=== PATIENT | male | born 1965 | race Caucasian/White ===

== ENCOUNTER 2017-08-31 08:12 | Inpatient (IN) ==
[2017-08-31] MEDS ORDERED: LORazepam 2 MG/1 ML VIAL IV STA (08:20)
[2017-08-31] MEDS ORDERED: SODIUM CHLORIDE 0.9% 1,000 ML IV STA (08:20)
[2017-08-31] MEDS ORDERED: LORazepam 2 MG/1 ML VIAL ONE ×2 (08:24→09:11)
[2017-08-31 08:55] LABS: Albumin 3.1 G/DL (3.4-5.0); Calcium 8.5 MG/DL (8.5-10.1); Osmolality,Calculated 287.1 MOS/KG (273-304); Total Protein 6.9 G/DL (6.4-8.3)
[2017-08-31 08:57] LABS: Potassium 5.5 MMOL/L (3.5-5.1); Troponin I Only 0.114 NG/ML (0.00-0.045)
[2017-08-31 09:15] LABS: Basophils # 0.1 10*3/uL (0.0-0.2); Basophils % 0.5 % (0.0-0.8); Eosinophils # 0.1 10*3/uL (0.0-0.87); Eosinophils % 0.5 % (0.00-10.9); Hematocrit 44.1 VOL% (42.0-52.0); Hemoglobin 15.1 GM/DL (14.0-18.0); Immature Granulocytes % 0.7 %; Immature Granulocytes Absolute 0.14 #; Lymphocytes # 2.2 10*3/uL (1.4-4.0); Lymphocytes % 11.3 % (21.2-54.2); Mean Corpuscular HGB Conc 34.2 GM/DL (32-36); Mean Corpuscular Hemoglobin 29 PG (27-34); Mean Corpuscular Volume 84.2 FL (87-102); Mean Platelet Volume 9.7 FL (9.6-12.0); Monocytes % 5.4 % (1.7-12.7); Neutrophils # 15.5 10*3/uL (1.4-7.4); Neutrophils % 81.6 % (38.7-73.9); Platelet Count 177 T/CUMM (130-400); Red Blood Count 5.24 MC/CUMM (3.8-5.5); Red Cell Distribution Width 12.4 % (9.3-17.3)
[2017-08-31 09:26] LABS: INR 1.1; PT Patient Result 11.2 SECS; Partial Thromboplastin Time 23.4 SECS (0-40)
[2017-08-31] MEDS ORDERED: HEPARIN DRIP 500 ML IV SCH ×2 (09:30→10:00)
[2017-08-31] MEDS ORDERED: PROPOFOL 1,000 MG/100 ML BOTTLE IV ONE (09:37)
[2017-08-31 09:39] LABS: Band Neutrophils 3 % (0-10); Lymphocytes 14 % (20-55); Platelet Estimate Normal; Segmented Neutrophils 78 % (50-85); Total Cells Counted 100
[2017-08-31] MEDS ORDERED: ROCURONIUM 100 MG/10 ML VIAL IV STA (09:48)
[2017-08-31] MEDS ORDERED: ETOMIDATE 20 MG/10 ML VIAL IV STA (09:48)
[2017-08-31] MEDS ORDERED: HEPARIN 5,000 UNIT/1 ML VIAL IV STA (09:49)
[2017-08-31] MEDS ORDERED: HEPARIN 5,000 UNIT/1 ML VIAL ONE (09:51)
[2017-08-31] MEDS ORDERED: HEPARIN/NACL 0.9% 2 UNITS/ML 1,000 ML IV ONE (10:17)
[2017-08-31] MEDS ORDERED: LIDOCAINE 2% 20 ML VIAL ONE (10:17)
[2017-08-31] MEDS ORDERED: DILTIAZEM 100 MG VIAL.ADD IV ONE (10:35)
[2017-08-31] MEDS: DILTIAZEM INJ 100 MG in SODIUM CHLORIDE 0.9% 100 ML IV SCH ×2 (10:53→14:58)
[2017-08-31] MEDS ORDERED: ALTEPLASE 6 MG in SODIUM CHLORIDE 0.9% 120 ML IV SCH ×2 (10:55→11:05)
[2017-08-31] MEDS ORDERED: SODIUM CHLORIDE 0.9% 1,000 ML IV SCH ×5 (10:55→16:30)
[2017-08-31] MEDS ORDERED: DILTIAZEM 50 MG/10 ML VIAL IV ONE (10:58)
[2017-08-31] MEDS ORDERED: METOPROLOL TARTRATE 5 MG/5 ML VIAL IV ONE (10:58)
[2017-08-31] MEDS ORDERED: hydrALAZINE 20 MG/1 ML VIAL ONE (10:58)
[2017-08-31] MEDS ORDERED: ALBUTEROL 2.5 MG/3 ML NEB RESP TX PRN (10:59)
[2017-08-31] MEDS ORDERED: GLUCAGON 1 MG VIAL IM PRN (11:04)
[2017-08-31] MEDS ORDERED: DEXTROSE 50% 25 GM/50 ML VIAL IV PRN (11:04)
[2017-08-31] MEDS ORDERED: HEPARIN DRIP 50,000 UNITS/1,000 ML PREMIX IV ONE (11:17)
[2017-08-31] MEDS ORDERED: METOPROLOL TARTRATE 5 MG/5 ML VIAL IV PRN (11:18)
[2017-08-31] MEDS ORDERED: hydrALAZINE 20 MG/1 ML VIAL IV PRN (11:19)
[2017-08-31] MEDS ORDERED: HEPARIN DRIP 25,000 UNITS/500 ML PREMIX IV SCH ×2 (11:30)
[2017-08-31] MEDS ORDERED: INSULIN LISPRO 100 UNIT/ML SUBCUT SCH ×2 (11:30→18:00)
[2017-08-31 12:34] LABS: ABG Base Excess -11.2 MMOL/L (-2.5-2.5); ABG HCO3 15.9 MMOL/L (20-26); ABG Oxygen Saturation 97.7 % (95-100); ABG PCO2 58.6 MM HG (35-48); ABG TCO2 17.5 MMOL/L (23-27)
[2017-08-31 12:35] LABS: Allen Test Positive; Pt O2 Delivery Device Ventilator
[2017-08-31 12:38] LABS: ABG PH 7.135 (7.35-7.45)
[2017-08-31] MEDS ORDERED: ETOMIDATE 20 MG/10 ML VIAL IV ONE (12:49)
[2017-08-31] MEDS ORDERED: ROCURONIUM 100 MG/10 ML VIAL IV ONE (12:50)
[2017-08-31 13:09] LABS: Basophils # 0.1 10*3/uL (0.0-0.2); Basophils % 0.4 % (0.0-0.8); Eosinophils % 0.1 % (0.00-10.9); Hematocrit 47.8 VOL% (42.0-52.0); Hemoglobin 15.6 GM/DL (14.0-18.0); Immature Granulocytes % 1.4 %; Immature Granulocytes Absolute 0.27 #; Lymphocytes # 1.5 10*3/uL (1.4-4.0); Lymphocytes % 7.9 % (21.2-54.2); Mean Corpuscular HGB Conc 32.6 GM/DL (32-36); Mean Corpuscular Hemoglobin 28 PG (27-34); Mean Corpuscular Volume 86.8 FL (87-102); Monocytes # 1.5 10*3/uL (0.11-0.8); Monocytes % 7.6 % (1.7-12.7); Neutrophils % 82.6 % (38.7-73.9); Platelet Count 249 T/CUMM (130-400); Red Blood Count 5.51 MC/CUMM (3.8-5.5); Red Cell Distribution Width 12.4 % (9.3-17.3); White Blood Count 19.3 T/CUMM (4-12)
[2017-08-31 13:26] LABS: Partial Thromboplastin Time 52.8 SECS (0-40)
[2017-08-31 13:37] LABS: ABG HCO3 16.1 MMOL/L (20-26); ABG Oxygen Saturation 99.2 % (95-100); ABG PCO2 48.9 MM HG (35-48); Allen Test Positive; Pt O2 Delivery Device Ventilator
[2017-08-31] MEDS: PROPOFOL 1,000 MG/100 ML BOTTLE IV SCH ×3 (14:00→23:34)
[2017-08-31 14:04] LABS: Albumin 3.5 G/DL (3.4-5.0); Calcium 8.1 MG/DL (8.5-10.1); Osmolality,Calculated 294.1 MOS/KG (273-304); Total Protein 6.7 G/DL (6.4-8.3)
[2017-08-31 14:08] LABS: Potassium 6.5 MMOL/L (3.5-5.1)
[2017-08-31] MEDS ORDERED: LORazepam 2 MG/1 ML VIAL IV ONE (14:13)
[2017-08-31] MEDS ORDERED: SODIUM BICARBONATE 50 MEQ/50 ML SYRINGE IV ONE ×4 (14:24→16:59)
[2017-08-31] MEDS ORDERED: INSULIN REGULAR 100 UNIT/ML IV ONE ×3 (14:31→22:01)
[2017-08-31 14:35] LABS: ABG Base Excess -12.1 MMOL/L (-2.5-2.5); ABG HCO3 15.3 MMOL/L (20-26); ABG Oxygen Saturation 99.6 % (95-100); ABG PCO2 44.1 MM HG (35-48); ABG TCO2 14.6 MMOL/L (23-27); Allen Test Positive; Pt O2 Delivery Device Ventilator
[2017-08-31 14:37] LABS: ABG PH 7.184 (7.35-7.45)
[2017-08-31] MEDS: INSULIN LISPRO 100 UNIT/ML SUBCUT SCH ×2 (14:55→18:48)
[2017-08-31] MEDS: NOREPINEPHRINE 8 MG in SODIUM CHLORIDE 0.9% 242 ML IV SCH ×2 (15:15→23:12)
[2017-08-31] MEDS ORDERED: SODIUM CHLORIDE 0.9% 500 ML IV ONE (15:18)
[2017-08-31] MEDS ORDERED: NOREPINEPHRINE 4 MG/4 ML VIAL IV ONE (15:20)
[2017-08-31 15:48] LABS: Lactic Acid 6.6 MMOL/L (0.4-2.0)
[2017-08-31] MEDS: SODIUM BICARB INJ 100 MEQ in DEXTROSE 5% 1,000 ML IV SCH (16:10)
[2017-08-31 16:56] LABS: ABG Base Excess -13.9 MMOL/L (-2.5-2.5); ABG HCO3 14.1 MMOL/L (20-26); ABG Oxygen Saturation 99.6 % (95-100); ABG PCO2 46.8 MM HG (35-48); ABG TCO2 14.2 MMOL/L (23-27); Allen Test Positive; Pt O2 Delivery Device Ventilator
[2017-08-31 16:58] LABS: ABG PH 7.138 (7.35-7.45)
[2017-08-31 16:58] LABS: Basophils # 0.1 10*3/uL (0.0-0.2); Basophils % 0.3 % (0.0-0.8); Eosinophils % 0.1 % (0.00-10.9); Hematocrit 46.2 VOL% (42.0-52.0); Hemoglobin 14.9 GM/DL (14.0-18.0); Immature Granulocytes Absolute 0.33 #; Lymphocytes # 1.5 10*3/uL (1.4-4.0); Lymphocytes % 9.2 % (21.2-54.2); Mean Corpuscular HGB Conc 32.3 GM/DL (32-36); Mean Corpuscular Hemoglobin 29 PG (27-34); Mean Corpuscular Volume 89.2 FL (87-102); Mean Platelet Volume 10.1 FL (9.6-12.0); Monocytes # 1.8 10*3/uL (0.11-0.8); Monocytes % 10.7 % (1.7-12.7); Neutrophils # 12.8 10*3/uL (1.4-7.4); Neutrophils % 77.7 % (38.7-73.9); Platelet Count 220 T/CUMM (130-400); Red Blood Count 5.18 MC/CUMM (3.8-5.5); Red Cell Distribution Width 12.5 % (9.3-17.3); White Blood Count 16.4 T/CUMM (4-12)
[2017-08-31 17:16] LABS: Partial Thromboplastin Time 69.7 SECS (0-40)
[2017-08-31 17:22] LABS: INR 1.1
[2017-08-31] MEDS: cefTRIAXone 1,000 MG in SYRINGE 1 EACH IV SCH (18:30)
[2017-08-31 20:47] LABS: ABG Base Excess -3.3 MMOL/L (-2.5-2.5); ABG HCO3 21.8 MMOL/L (20-26); ABG Oxygen Saturation 99.9 % (95-100); ABG PCO2 41.9 MM HG (35-48); ABG PH 7.339 (7.35-7.45); ABG TCO2 19.2 MMOL/L (23-27); Allen Test Positive; Pt O2 Delivery Device Ventilator
[2017-08-31] MEDS ORDERED: INSULIN LISPRO 100 UNIT/ML SUBCUT ONE (21:30)
[2017-08-31 21:51] LABS: Calcium 7.3 MG/DL (8.5-10.1); Osmolality,Calculated 300.5 MOS/KG (273-304)
[2017-08-31 21:52] LABS: Potassium 6.5 MMOL/L (3.5-5.1)
[2017-08-31] MEDS ORDERED: CALCIUM GLUCONATE 1,000 MG in SODIUM CHLORIDE 0.9% 100 ML IV ONE (22:30)
[2017-09-01] MEDS ORDERED: INSULIN LISPRO 100 UNIT/ML SUBCUT SCH
[2017-09-01] MEDS: SODIUM BICARB INJ 100 MEQ in DEXTROSE 5% 1,000 ML IV SCH ×2 (01:06→12:20)
[2017-09-01] MEDS: PROPOFOL 1,000 MG/100 ML BOTTLE IV SCH ×5 (03:10→19:30)
[2017-09-01 03:54] LABS: ABG Base Excess 1.3 MMOL/L (-2.5-2.5); ABG HCO3 25.6 MMOL/L (20-26); ABG PCO2 39.1 MM HG (35-48); ABG PH 7.424 (7.35-7.45); ABG TCO2 21.6 MMOL/L (23-27); Pt O2 Delivery Device Ventilator
[2017-09-01] MEDS: INSULIN LISPRO 100 UNIT/ML SUBCUT SCH ×3 (03:55→08:37)
[2017-09-01 05:47] LABS: Basophils # 0.1 10*3/uL (0.0-0.2); Basophils % 0.4 % (0.0-0.8); Hematocrit 41.9 VOL% (42.0-52.0); Hemoglobin 14.4 GM/DL (14.0-18.0); Immature Granulocytes % 0.8 %; Immature Granulocytes Absolute 0.09 #; Lymphocytes % 17.6 % (21.2-54.2); Mean Corpuscular HGB Conc 34.4 GM/DL (32-36); Mean Corpuscular Hemoglobin 28 PG (27-34); Mean Platelet Volume 10.5 FL (9.6-12.0); Monocytes # 0.5 10*3/uL (0.11-0.8); Monocytes % 4.7 % (1.7-12.7); Neutrophils # 8.9 10*3/uL (1.4-7.4); Neutrophils % 76.5 % (38.7-73.9); Platelet Count 162 T/CUMM (130-400); Red Blood Count 5.11 MC/CUMM (3.8-5.5); Red Cell Distribution Width 12.6 % (9.3-17.3); White Blood Count 11.6 T/CUMM (4-12)
[2017-09-01 05:56] LABS: INR 1.3; PT Patient Result 13.1 SECS
[2017-09-01] MEDS: cefTRIAXone 1,000 MG in SYRINGE 1 EACH IV SCH ×2 (06:38→17:26)
[2017-09-01 06:57] LABS: Calcium 7.6 MG/DL (8.5-10.1); Osmolality,Calculated 296.3 MOS/KG (273-304); Potassium 4.3 MMOL/L (3.5-5.1)
[2017-09-01] MEDS ORDERED: SODIUM CHLORIDE 0.9% 1,000 ML IV ONE (08:26)
[2017-09-01] MEDS ORDERED: ALBUMIN 25% 25 GM in PREMIX 1 EACH IV ONE (08:26)
[2017-09-01] MEDS: NOREPINEPHRINE 8 MG in SODIUM CHLORIDE 0.9% 242 ML IV SCH (08:36)
[2017-09-01] MEDS ORDERED: LISINOPRIL 5 MG TABLET PO SCH (09:00)
[2017-09-01] MEDS ORDERED: HEPARIN DRIP 25,000 UNITS/500 ML PREMIX IV SCH (09:00)
[2017-09-01] MEDS ORDERED: PANTOPRAZOLE 40 MG TABLET PO SCH (09:00)
[2017-09-01] MEDS ORDERED: APIXABAN 5 MG TABLET PO SCH ×2 (09:00→09:02)
[2017-09-01] MEDS ORDERED: HEPARIN 5,000 UNIT/1 ML VIAL IV ONE (10:29)
[2017-09-01 10:45] LABS: Amorphous Crystals,Urine Many /HPF (Few); Apearance,Urine CLOUDY (Clear); Bilirubin,Urine Negative (Negative); Blood, Urine Large mg/dL (Negative); Glucose,Urine (UA) >=500 mg/dL (Negative); Granular Casts,Urine 15 /LPF (0-1); Ketones,Urine Negative (Negative); Nitrite,Urine Negative (Negative); Protein,Urine 100 MG/DL; RBC,Urine 2 /HPF (0-4); Urine Color Yellow (Yellow); Urine Specific Gravity 1.031 (1.001-1.035); Urine Urobilinogen < 2.0 EU/DL (0.2-1.0); WBC,Urine 8 /HPF (0-6)
[2017-09-01 11:11] LABS: Barbiturates Screen,Urine Negative (Negative); Benzodiazepines Screen,Urine Negative (Negative); Cannabinoid Screen,Urine Negative (Negative); Opiate Screen,Urine Positive (Negative); Phencyclidine Screen,Urine Negative (Negative)
[2017-09-01 11:39] LABS: Partial Thromboplastin Time 55.6 SECS (0-40)
[2017-09-01] MEDS: SIMVASTATIN 20 MG TABLET PO SCH (11:53)
[2017-09-01] MEDS: CITALOPRAM 20 MG TABLET PO SCH (11:53)
[2017-09-01] MEDS: ASPIRIN EC 81 MG TABLET PO SCH (11:53)
[2017-09-01] MEDS: APIXABAN 5 MG TABLET PO SCH ×2 (11:53→21:58)
[2017-09-01] MEDS: INSULIN REGULAR 100 UNIT/ML SUBCUT SCH ×2 (12:35→17:26)
[2017-09-01] MEDS: LORazepam 2 MG/1 ML VIAL IV PRN (12:48)
[2017-09-01] MEDS: SODIUM CHLORIDE 0.9% 1,000 ML IV SCH (17:05)
[2017-09-01 18:35] LABS: Partial Thromboplastin Time 29.6 SECS (0-40)
[2017-09-01] MEDS ORDERED: NOREPINEPHRINE 8 MG in SODIUM CHLORIDE 0.9% 242 ML IV SCH (23:30)
[2017-09-02] MEDS: INSULIN REGULAR 100 UNIT/ML SUBCUT SCH ×4 (00:19→18:24)
[2017-09-02] MEDS: SODIUM BICARB INJ 100 MEQ in DEXTROSE 5% 1,000 ML IV SCH (00:20)
[2017-09-02] MEDS: PROPOFOL 1,000 MG/100 ML BOTTLE IV SCH ×6 (00:23→22:00)
[2017-09-02] MEDS: SODIUM CHLORIDE 0.9% 1,000 ML IV SCH ×3 (03:03→22:15)
[2017-09-02 03:30] LABS: ABG Base Excess 4.4 MMOL/L (-2.5-2.5); ABG HCO3 28.3 MMOL/L (20-26); ABG Oxygen Saturation 97.8 % (95-100); ABG PH 7.453 (7.35-7.45); ABG PO2 94.8 MM HG (80-95); ABG TCO2 25.2 MMOL/L (23-27)
[2017-09-02] MEDS: LORazepam 2 MG/1 ML VIAL IV PRN (03:55)
[2017-09-02 05:36] LABS: Basophils % 0.4 % (0.0-0.8); Eosinophils % 0.2 % (0.00-10.9); Hematocrit 35.9 VOL% (42.0-52.0); Hemoglobin 12.4 GM/DL (14.0-18.0); Immature Granulocytes % 0.8 %; Immature Granulocytes Absolute 0.09 #; Lymphocytes # 1.1 10*3/uL (1.4-4.0); Lymphocytes % 9.9 % (21.2-54.2); Mean Corpuscular HGB Conc 34.5 GM/DL (32-36); Mean Corpuscular Hemoglobin 29 PG (27-34); Mean Corpuscular Volume 83.5 FL (87-102); Mean Platelet Volume 10.9 FL (9.6-12.0); Monocytes # 0.5 10*3/uL (0.11-0.8); NRBC # 0.02 10*3/uL; Neutrophils % 83.7 % (38.7-73.9); Platelet Count 114 T/CUMM (130-400); Red Cell Distribution Width 12.5 % (9.3-17.3); White Blood Count 10.8 T/CUMM (4-12)
[2017-09-02 05:42] LABS: Partial Thromboplastin Time 28.5 SECS (0-40)
[2017-09-02] MEDS: cefTRIAXone 1,000 MG in SYRINGE 1 EACH IV SCH ×2 (05:57→18:24)
[2017-09-02 06:23] LABS: Albumin 2.9 G/DL (3.4-5.0); Bilirubin,Total 1.5 MG/DL (0.2-1.0); Calcium 7.6 MG/DL (8.5-10.1); Osmolality,Calculated 290.3 MOS/KG (273-304); Potassium 3.7 MMOL/L (3.5-5.1); Total Protein 5.2 G/DL (6.4-8.3)
[2017-09-02 06:30] LABS: Prealbumin 12.4 MG/DL (20-40)
[2017-09-02] MEDS: SIMVASTATIN 20 MG TABLET PO SCH (08:50)
[2017-09-02] MEDS: CITALOPRAM 20 MG TABLET PO SCH (08:50)
[2017-09-02] MEDS: ASPIRIN EC 81 MG TABLET PO SCH (08:50)
[2017-09-02] MEDS: APIXABAN 5 MG TABLET PO SCH ×2 (08:53→21:39)
[2017-09-02] MEDS ORDERED: FUROSEMIDE 20 MG/2 ML VIAL IV ONE (09:58)
[2017-09-02 14:52] LABS: ABG Base Excess 5.4 MMOL/L (-2.5-2.5); ABG HCO3 29.3 MMOL/L (20-26); ABG Oxygen Saturation 96.7 % (95-100); ABG PCO2 42.6 MM HG (35-48); ABG PH 7.455 (7.35-7.45); ABG PO2 83.3 MM HG (80-95); ABG TCO2 26.4 MMOL/L (23-27); Allen Test Positive; Pt O2 Delivery Device CPAP
[2017-09-03] MEDS: INSULIN REGULAR 100 UNIT/ML SUBCUT SCH ×4 (00:20→17:32)
[2017-09-03] MEDS: PROPOFOL 1,000 MG/100 ML BOTTLE IV SCH ×4 (02:33→19:11)
[2017-09-03 03:49] LABS: ABG Base Excess 3.3 MMOL/L (-2.5-2.5); ABG HCO3 27.3 MMOL/L (20-26); ABG Oxygen Saturation 98.3 % (95-100); ABG PCO2 44.8 MM HG (35-48); ABG PH 7.411 (7.35-7.45); ABG TCO2 25.1 MMOL/L (23-27)
[2017-09-03] MEDS: LORazepam 2 MG/1 ML VIAL IV PRN (04:09)
[2017-09-03 04:42] LABS: Basophils # 0.1 10*3/uL (0.0-0.2); Basophils % 0.7 % (0.0-0.8); Eosinophils # 0.1 10*3/uL (0.0-0.87); Eosinophils % 1.5 % (0.00-10.9); Hematocrit 35.1 VOL% (42.0-52.0); Immature Granulocytes % 0.6 %; Immature Granulocytes Absolute 0.05 #; Lymphocytes # 0.9 10*3/uL (1.4-4.0); Lymphocytes % 9.9 % (21.2-54.2); Mean Corpuscular HGB Conc 34.2 GM/DL (32-36); Mean Corpuscular Hemoglobin 28 PG (27-34); Mean Corpuscular Volume 82.8 FL (87-102); Monocytes # 0.5 10*3/uL (0.11-0.8); Monocytes % 5.9 % (1.7-12.7); NRBC # 0.03 10*3/uL; Neutrophils # 7.1 10*3/uL (1.4-7.4); Neutrophils % 81.4 % (38.7-73.9); Platelet Count 129 T/CUMM (130-400); Red Blood Count 4.24 MC/CUMM (3.8-5.5); Red Cell Distribution Width 12.5 % (9.3-17.3); White Blood Count 8.7 T/CUMM (4-12)
[2017-09-03 05:14] LABS: Albumin 2.8 G/DL (3.4-5.0); Bilirubin,Total 1.3 MG/DL (0.2-1.0); Calcium 7.7 MG/DL (8.5-10.1); Osmolality,Calculated 289.1 MOS/KG (273-304); Potassium 3.7 MMOL/L (3.5-5.1); Total Protein 5.1 G/DL (6.4-8.3)
[2017-09-03] MEDS: cefTRIAXone 1,000 MG in SYRINGE 1 EACH IV SCH ×2 (06:17→17:32)
[2017-09-03] MEDS: CITALOPRAM 20 MG TABLET PO SCH (09:42)
[2017-09-03] MEDS: ASPIRIN EC 81 MG TABLET PO SCH (09:43)
[2017-09-03] MEDS: SODIUM CHLORIDE 0.9% 1,000 ML IV SCH ×2 (09:43→20:30)
[2017-09-03] MEDS: APIXABAN 5 MG TABLET PO SCH ×2 (09:43→20:35)
[2017-09-03] MEDS ORDERED: FUROSEMIDE 20 MG/2 ML VIAL IV ONE (11:00)
[2017-09-03] MEDS: LEVOFLOXACIN INJ 750 MG in PREMIX 1 EACH IV SCH (11:59)
[2017-09-04] MEDS: INSULIN REGULAR 100 UNIT/ML SUBCUT SCH ×4 (02:00→17:40)
[2017-09-04] MEDS: PROPOFOL 1,000 MG/100 ML BOTTLE IV SCH ×3 (02:01→20:53)
[2017-09-04] MEDS: LORazepam 2 MG/1 ML VIAL IV PRN (02:02)
[2017-09-04 04:46] LABS: ABG Base Excess 4.5 MMOL/L (-2.5-2.5); ABG HCO3 28.5 MMOL/L (20-26); ABG Oxygen Saturation 99.4 % (95-100); ABG PCO2 44.6 MM HG (35-48); ABG PH 7.429 (7.35-7.45); ABG TCO2 25.7 MMOL/L (23-27); Pt O2 Delivery Device Ventilator
[2017-09-04 05:38] LABS: Basophils % 0.5 % (0.0-0.8); Eosinophils # 0.2 10*3/uL (0.0-0.87); Eosinophils % 2.7 % (0.00-10.9); Hematocrit 32.2 VOL% (42.0-52.0); Immature Granulocytes % 0.8 %; Immature Granulocytes Absolute 0.06 #; Lymphocytes % 12.1 % (21.2-54.2); Mean Corpuscular HGB Conc 34.2 GM/DL (32-36); Mean Corpuscular Hemoglobin 29 PG (27-34); Mean Corpuscular Volume 83.6 FL (87-102); Mean Platelet Volume 11.1 FL (9.6-12.0); Monocytes # 0.7 10*3/uL (0.11-0.8); NRBC # 0.02 10*3/uL; Neutrophils # 5.9 10*3/uL (1.4-7.4); Neutrophils % 74.9 % (38.7-73.9); Platelet Count 157 T/CUMM (130-400); Red Blood Count 3.85 MC/CUMM (3.8-5.5); Red Cell Distribution Width 12.4 % (9.3-17.3); White Blood Count 7.9 T/CUMM (4-12)
[2017-09-04 06:54] LABS: Calcium 7.5 MG/DL (8.5-10.1); Potassium 3.7 MMOL/L (3.5-5.1)
[2017-09-04] MEDS: cefTRIAXone 1,000 MG in SYRINGE 1 EACH IV SCH ×2 (07:07→17:40)
[2017-09-04 08:48] LABS: Albumin 2.6 G/DL (3.4-5.0); Bilirubin,Direct 0.46 MG/DL (0.0-0.20); Bilirubin,Indirect 0.5 MG/DL (0.0-1.0)
[2017-09-04] MEDS: APIXABAN 5 MG TABLET PO SCH ×2 (09:27→21:00)
[2017-09-04] MEDS: CITALOPRAM 20 MG TABLET PO SCH (09:27)
[2017-09-04] MEDS: ASPIRIN EC 81 MG TABLET PO SCH (09:27)
[2017-09-04] MEDS: LEVOFLOXACIN INJ 750 MG in PREMIX 1 EACH IV SCH (09:33)
[2017-09-04] MEDS: SODIUM CHLORIDE 0.9% 1,000 ML IV SCH ×3 (09:33→19:45)
[2017-09-04] MEDS: MORPHINE 2 MG/1 ML SYRINGE IV PRN ×3 (16:40→23:51)
[2017-09-04] MEDS ORDERED: MIDAZOLAM 100 MG in SODIUM CHLORIDE 0.9% 80 ML IV SCH (20:30)
[2017-09-04] MEDS ORDERED: SUCCINYLCHOLINE 200 MG/10 ML VIAL ONE (21:40)
[2017-09-05] MEDS: LORazepam 2 MG/1 ML VIAL IV PRN ×2 (00:10→16:15)
[2017-09-05] MEDS: INSULIN REGULAR 100 UNIT/ML SUBCUT SCH ×4 (00:15→17:23)
[2017-09-05] MEDS ORDERED: RACEPINEPHRINE 0.5 ML NEB RESP TX PRN (01:00)
[2017-09-05] MEDS ORDERED: ETOMIDATE 20 MG/10 ML VIAL IV ONE ×2 (01:08→01:25)
[2017-09-05] MEDS ORDERED: VECURONIUM 10 MG VIAL IV ONE ×2 (01:18→01:24)
[2017-09-05] MEDS: PROPOFOL 1,000 MG/100 ML BOTTLE IV SCH ×2 (01:22→05:14)
[2017-09-05] MEDS ORDERED: fentaNYL 100 MCG/2 ML VIAL ONE (01:22)
[2017-09-05] MEDS ORDERED: PROPOFOL 1,000 MG/100 ML BOTTLE IV ONE (01:22)
[2017-09-05] MEDS ORDERED: fentaNYL 100 MCG/2 ML VIAL IV ONE (01:23)
[2017-09-05] MEDS ORDERED: SUCCINYLCHOLINE 200 MG/10 ML VIAL IV ONE (01:24)
[2017-09-05] MEDS ORDERED: RACEPINEPHRINE 0.5 ML NEB RESP TX ONE (01:37)
[2017-09-05] MEDS ORDERED: FUROSEMIDE 40 MG/4 ML VIAL IV ONE (01:41)
[2017-09-05] MEDS ORDERED: diphenhydrAMINE 50 MG/1 ML VIAL IV ONE (01:41)
[2017-09-05] MEDS: fentaNYL INJ 1,250 MCG in SODIUM CHLORIDE 0.9% 225 ML IV SCH ×2 (01:48→18:16)
[2017-09-05] MEDS ORDERED: methylPREDNISolone SOD SUC 125 MG/2 ML VIAL IV ONE (01:49)
[2017-09-05] MEDS ORDERED: VANCOMYCIN INJ 1,750 MG in SODIUM CHLORIDE 0.9% 500 ML IV SCH (02:00)
[2017-09-05] MEDS: SODIUM CHLORIDE 0.9% 1,000 ML IV SCH ×2 (02:20→05:13)
[2017-09-05 02:33] LABS: Basophils % 0.4 % (0.0-0.8); Eosinophils # 0.2 10*3/uL (0.0-0.87); Eosinophils % 1.6 % (0.00-10.9); Hematocrit 36.3 VOL% (42.0-52.0); Hemoglobin 11.8 GM/DL (14.0-18.0); Immature Granulocytes % 2.1 %; Immature Granulocytes Absolute 0.23 #; Lymphocytes # 0.8 10*3/uL (1.4-4.0); Lymphocytes % 7.3 % (21.2-54.2); Mean Corpuscular HGB Conc 32.5 GM/DL (32-36); Mean Corpuscular Hemoglobin 28 PG (27-34); Mean Corpuscular Volume 86.2 FL (87-102); Mean Platelet Volume 10.6 FL (9.6-12.0); Monocytes # 0.9 10*3/uL (0.11-0.8); Monocytes % 8.1 % (1.7-12.7); Neutrophils # 8.7 10*3/uL (1.4-7.4); Neutrophils % 80.5 % (38.7-73.9); Platelet Count 187 T/CUMM (130-400); Red Blood Count 4.21 MC/CUMM (3.8-5.5); Red Cell Distribution Width 12.5 % (9.3-17.3); White Blood Count 10.8 T/CUMM (4-12)
[2017-09-05 02:33] LABS: Allen Test Positive; Pt O2 Delivery Device Ventilator
[2017-09-05 02:34] LABS: ABG Base Excess -0.6 MMOL/L (-2.5-2.5); ABG HCO3 27.6 MMOL/L (20-26); ABG Oxygen Saturation 90.7 % (95-100); ABG PCO2 62.6 MM HG (35-48); ABG PH 7.262 (7.35-7.45); ABG PO2 70.1 MM HG (80-95); ABG TCO2 29.5 MMOL/L (23-27)
[2017-09-05 03:02] LABS: Band Neutrophils 15 % (0-10); Lymphocytes 4 % (20-55); Segmented Neutrophils 75 % (50-85); Total Cells Counted 100
[2017-09-05 03:03] LABS: Alanine Aminotransferase 1969 U/L (16-61); Albumin 2.7 G/DL (3.4-5.0); Alkaline Phosphatase 110 U/L (45-117); Aspartate Amino Transferase 135 U/L (0-37); Blood Urea Nitrogen 21 MG/DL (7-18); Calcium 7.5 MG/DL (8.5-10.1); Glucose 192 MG/DL (74-106); Osmolality,Calculated 295.7 MOS/KG (273-304); Sodium 145 MMOL/L (136-145); Total Protein 5.2 G/DL (6.4-8.3); Troponin I Only < 0.015 NG/ML (0.00-0.045)
[2017-09-05] MEDS: ALBUTEROL 2.5 MG/3 ML NEB RESP TX SCH ×5 (03:06→21:09)
[2017-09-05 04:03] LABS: Allen Test Positive; Pt O2 Delivery Device Ventilator
[2017-09-05 04:05] LABS: ABG Base Excess 0.9 MMOL/L (-2.5-2.5); ABG HCO3 25.2 MMOL/L (20-26); ABG Oxygen Saturation 98.8 % (95-100); ABG PCO2 40.3 MM HG (35-48); ABG PH 7.409 (7.35-7.45); ABG TCO2 22.7 MMOL/L (23-27)
[2017-09-05] MEDS ORDERED: CALCIUM GLUCONATE 1,000 MG in SODIUM CHLORIDE 0.9% 100 ML IV ONE (04:22)
[2017-09-05] MEDS: PIPERACILLIN/TAZOBACTAM 3,375 MG in SODIUM CHLORIDE 0.9% 100 ML IV SCH ×3 (05:57→20:22)
[2017-09-05 07:45] LABS: Basophils % 0.3 % (0.0-0.8); Eosinophils % 0.1 % (0.00-10.9); Hematocrit 34.8 VOL% (42.0-52.0); Hemoglobin 11.6 GM/DL (14.0-18.0); Immature Granulocytes % 1.6 %; Immature Granulocytes Absolute 0.15 #; Lymphocytes # 0.5 10*3/uL (1.4-4.0); Lymphocytes % 5.5 % (21.2-54.2); Mean Corpuscular HGB Conc 33.3 GM/DL (32-36); Mean Corpuscular Hemoglobin 28 PG (27-34); Mean Corpuscular Volume 84.9 FL (87-102); Mean Platelet Volume 10.6 FL (9.6-12.0); Monocytes # 0.3 10*3/uL (0.11-0.8); Neutrophils # 8.3 10*3/uL (1.4-7.4); Neutrophils % 89.5 % (38.7-73.9); Platelet Count 199 T/CUMM (130-400); Red Cell Distribution Width 12.3 % (9.3-17.3); White Blood Count 9.2 T/CUMM (4-12)
[2017-09-05 08:03] LABS: Calcium 6.9 MG/DL (8.5-10.1); Osmolality,Calculated 295.8 MOS/KG (273-304); Potassium 4.1 MMOL/L (3.5-5.1)
[2017-09-05 08:07] LABS: Prealbumin 8.3 MG/DL (20-40)
[2017-09-05 08:08] LABS: % Iron Saturation 10.7 % (18-50); Ferritin 1205.6 ng/ml (26-388)
[2017-09-05 08:31] LABS: Hypochromasia 1+
[2017-09-05 08:42] LABS: Hepatitis A Ab IgM Quant 0.09 Index; Hepatitis A Ab IgM Result Negative (Negative); Hepatitis B Core IgM Quant 0.19 Index; Hepatitis B Core IgM Result Negative (Negative); Hepatitis B Surface Ag Quant < 0.10 Index; Hepatitis B Surface Ag Result Negative (Negative); Hepatitis C Virus Ab Quant 0.11 Index; Hepatitis C Virus Ab Result Negative (Negative)
[2017-09-05] MEDS ORDERED: metOLazone 5 MG TABLET PO ONE (09:00)
[2017-09-05] MEDS: APIXABAN 5 MG TABLET PO SCH ×2 (09:04→20:22)
[2017-09-05] MEDS: ASPIRIN EC 81 MG TABLET PO SCH (09:05)
[2017-09-05] MEDS: methylPREDNISolone SOD SUC 40 MG/1 ML VIAL IV SCH ×2 (09:05→17:24)
[2017-09-05] MEDS: LEVOFLOXACIN INJ 750 MG in PREMIX 1 EACH IV SCH (09:06)
[2017-09-05] MEDS: CITALOPRAM 20 MG TABLET PO SCH (09:07)
[2017-09-05 09:37] LABS: Allen Test Positive; Pt O2 Delivery Device Ventilator
[2017-09-05 09:40] LABS: ABG Base Excess 0.6 MMOL/L (-2.5-2.5); ABG HCO3 23.3 MMOL/L (20-26); ABG Oxygen Saturation 98.7 % (95-100); ABG PCO2 31.5 MM HG (35-48); ABG PH 7.487 (7.35-7.45); ABG PO2 172.5 MM HG (80-95); ABG TCO2 24.3 MMOL/L (23-27)
[2017-09-05] MEDS: ACYCLOVIR INJ 500 MG in SODIUM CHLORIDE 0.9% 100 ML IV SCH ×2 (13:22→18:12)
[2017-09-06] MEDS: INSULIN REGULAR 100 UNIT/ML SUBCUT SCH ×4 (00:52→17:27)
[2017-09-06] MEDS: ALBUTEROL 2.5 MG/3 ML NEB RESP TX SCH ×6 (01:00→21:36)
[2017-09-06 04:17] LABS: ABG Base Excess 4.3 MMOL/L (-2.5-2.5); ABG HCO3 28.1 MMOL/L (20-26); ABG PCO2 38.8 MM HG (35-48); ABG PH 7.477 (7.35-7.45); ABG PO2 97.5 MM HG (80-95); ABG TCO2 29.2 MMOL/L (23-27); Allen Test Positive; Pt O2 Delivery Device Ventilator
[2017-09-06] MEDS: ACYCLOVIR INJ 500 MG in SODIUM CHLORIDE 0.9% 100 ML IV SCH ×3 (04:24→18:15)
[2017-09-06] MEDS: PIPERACILLIN/TAZOBACTAM 3,375 MG in SODIUM CHLORIDE 0.9% 100 ML IV SCH ×3 (04:24→22:57)
[2017-09-06] MEDS: methylPREDNISolone SOD SUC 40 MG/1 ML VIAL IV SCH ×3 (04:25→20:20)
[2017-09-06 05:13] LABS: Basophils % 0.1 % (0.0-0.8); Hematocrit 34.7 VOL% (42.0-52.0); Hemoglobin 11.5 GM/DL (14.0-18.0); Immature Granulocytes Absolute 0.13 #; Lymphocytes # 0.6 10*3/uL (1.4-4.0); Lymphocytes % 4.7 % (21.2-54.2); Mean Corpuscular HGB Conc 33.1 GM/DL (32-36); Mean Corpuscular Hemoglobin 28 PG (27-34); Mean Corpuscular Volume 84.2 FL (87-102); Mean Platelet Volume 11.1 FL (9.6-12.0); Monocytes # 0.7 10*3/uL (0.11-0.8); Monocytes % 5.2 % (1.7-12.7); Neutrophils # 11.9 10*3/uL (1.4-7.4); Platelet Count 246 T/CUMM (130-400); Red Blood Count 4.12 MC/CUMM (3.8-5.5); Red Cell Distribution Width 12.2 % (9.3-17.3); White Blood Count 13.4 T/CUMM (4-12)
[2017-09-06 05:59] LABS: Albumin 2.7 G/DL (3.4-5.0); Bilirubin,Total 0.8 MG/DL (0.2-1.0); Calcium 8.2 MG/DL (8.5-10.1); Potassium 3.4 MMOL/L (3.5-5.1); Total Protein 5.4 G/DL (6.4-8.3)
[2017-09-06] MEDS: PROPOFOL 1,000 MG/100 ML BOTTLE IV SCH (07:01)
[2017-09-06] MEDS: fentaNYL INJ 1,250 MCG in SODIUM CHLORIDE 0.9% 225 ML IV SCH ×2 (08:21→19:33)
[2017-09-06] MEDS ORDERED: POTASSIUM CHLORIDE 20 MEQ TABLET PO ONE (08:33)
[2017-09-06 08:56] LABS: Lymphocytes 6 % (20-55); Segmented Neutrophils 90 % (50-85); Total Cells Counted 100
[2017-09-06 08:57] LABS: Hypochromasia 1+; Microcytosis 1+; Platelet Estimate Normal
[2017-09-06] MEDS ORDERED: metOLazone 5 MG TABLET PO ONE (09:00)
[2017-09-06] MEDS ORDERED: FUROSEMIDE 20 MG/2 ML VIAL IV SCH (09:00)
[2017-09-06] MEDS: CITALOPRAM 20 MG TABLET PO SCH (09:05)
[2017-09-06] MEDS: APIXABAN 5 MG TABLET PO SCH ×2 (09:05→20:20)
[2017-09-06] MEDS: ASPIRIN EC 81 MG TABLET PO SCH (09:05)
[2017-09-06] MEDS: glyBURIDE 2.5 MG TABLET PO SCH (09:05)
[2017-09-06] MEDS: INSULIN GLARGINE 100 UNIT/ML SUBCUT SCH (09:06)
[2017-09-06] MEDS: LEVOFLOXACIN INJ 750 MG in PREMIX 1 EACH IV SCH (09:06)
[2017-09-06] MEDS: LORazepam 2 MG/1 ML VIAL IV PRN (09:58)
[2017-09-07] MEDS: ALBUTEROL 2.5 MG/3 ML NEB RESP TX SCH ×7 (01:22→23:37)
[2017-09-07] MEDS: INSULIN REGULAR 100 UNIT/ML SUBCUT SCH ×4 (01:25→18:29)
[2017-09-07] MEDS: fentaNYL INJ 1,250 MCG in SODIUM CHLORIDE 0.9% 225 ML IV SCH ×3 (02:41→21:18)
[2017-09-07] MEDS: methylPREDNISolone SOD SUC 40 MG/1 ML VIAL IV SCH ×3 (03:43→22:30)
[2017-09-07] MEDS: ACYCLOVIR INJ 500 MG in SODIUM CHLORIDE 0.9% 100 ML IV SCH ×3 (03:47→18:29)
[2017-09-07 03:54] LABS: Basophils % 0.1 % (0.0-0.8); Hematocrit 35.5 VOL% (42.0-52.0); Immature Granulocytes % 0.9 %; Immature Granulocytes Absolute 0.16 #; Lymphocytes # 0.6 10*3/uL (1.4-4.0); Lymphocytes % 3.5 % (21.2-54.2); Mean Corpuscular HGB Conc 33.8 GM/DL (32-36); Mean Corpuscular Hemoglobin 28 PG (27-34); Mean Corpuscular Volume 83.5 FL (87-102); Mean Platelet Volume 10.7 FL (9.6-12.0); Monocytes # 0.6 10*3/uL (0.11-0.8); Monocytes % 3.5 % (1.7-12.7); Neutrophils # 16.4 10*3/uL (1.4-7.4); Platelet Count 307 T/CUMM (130-400); Red Blood Count 4.25 MC/CUMM (3.8-5.5); Red Cell Distribution Width 12.4 % (9.3-17.3); White Blood Count 17.8 T/CUMM (4-12)
[2017-09-07 03:56] LABS: ABG Base Excess 5.2 MMOL/L (-2.5-2.5); ABG Oxygen Saturation 94.6 % (95-100); ABG PCO2 45.3 MM HG (35-48); ABG PH 7.432 (7.35-7.45); ABG PO2 72.7 MM HG (80-95); ABG TCO2 26.7 MMOL/L (23-27)
[2017-09-07] MEDS: PROPOFOL 1,000 MG/100 ML BOTTLE IV SCH ×2 (03:57→17:15)
[2017-09-07 04:26] LABS: Albumin 2.9 G/DL (3.4-5.0); Bilirubin,Total 0.7 MG/DL (0.2-1.0); Calcium 8.4 MG/DL (8.5-10.1); Osmolality,Calculated 301.1 MOS/KG (273-304); Potassium 3.4 MMOL/L (3.5-5.1); Total Protein 5.7 G/DL (6.4-8.3)
[2017-09-07 05:23] LABS: Hypochromasia 1+; Lymphocytes 6 % (20-55); Microcytosis 1+; Platelet Estimate Normal; Segmented Neutrophils 90 % (50-85); Total Cells Counted 100
[2017-09-07] MEDS: PIPERACILLIN/TAZOBACTAM 3,375 MG in SODIUM CHLORIDE 0.9% 100 ML IV SCH ×2 (06:44→15:42)
[2017-09-07] MEDS: LORazepam 2 MG/1 ML VIAL IV PRN ×2 (10:45→15:42)
[2017-09-07 10:59] LABS: ABG Base Excess 4.9 MMOL/L (-2.5-2.5); ABG HCO3 29.3 MMOL/L (20-26); ABG Oxygen Saturation 97.1 % (95-100); ABG PCO2 42.5 MM HG (35-48); ABG PH 7.457 (7.35-7.45); ABG PO2 100.4 MM HG (80-95); ABG TCO2 30.6 MMOL/L (23-27)
[2017-09-07] MEDS: CITALOPRAM 20 MG TABLET PO SCH (11:15)
[2017-09-07] MEDS: POTASSIUM CHLORIDE 20 MEQ TABLET PO SCH (11:16)
[2017-09-07] MEDS: APIXABAN 5 MG TABLET PO SCH ×2 (11:16→22:30)
[2017-09-07] MEDS: ASPIRIN EC 81 MG TABLET PO SCH (11:16)
[2017-09-07] MEDS: LEVOFLOXACIN INJ 750 MG in PREMIX 1 EACH IV SCH (11:17)
[2017-09-07] MEDS: glyBURIDE 2.5 MG TABLET PO SCH (11:24)
[2017-09-07] MEDS: INSULIN GLARGINE 100 UNIT/ML SUBCUT SCH (11:26)
[2017-09-07] MEDS: fentaNYL INJ 2,500 MCG in SODIUM CHLORIDE 0.9% 450 ML IV SCH (21:18)
[2017-09-08] MEDS: INSULIN REGULAR 100 UNIT/ML SUBCUT SCH ×4 (00:44→18:07)
[2017-09-08] MEDS: PIPERACILLIN/TAZOBACTAM 3,375 MG in SODIUM CHLORIDE 0.9% 100 ML IV SCH ×4 (00:46→21:20)
[2017-09-08] MEDS: fentaNYL INJ 1,250 MCG in SODIUM CHLORIDE 0.9% 225 ML IV SCH (01:59)
[2017-09-08] MEDS: ALBUTEROL 2.5 MG/3 ML NEB RESP TX SCH ×5 (02:57→19:27)
[2017-09-08] MEDS: ACYCLOVIR INJ 500 MG in SODIUM CHLORIDE 0.9% 100 ML IV SCH ×3 (03:48→18:07)
[2017-09-08 04:08] LABS: Basophils % 0.1 % (0.0-0.8); Hematocrit 37.8 VOL% (42.0-52.0); Hemoglobin 12.5 GM/DL (14.0-18.0); Immature Granulocytes % 2.8 %; Immature Granulocytes Absolute 0.41 #; Lymphocytes # 0.5 10*3/uL (1.4-4.0); Lymphocytes % 3.7 % (21.2-54.2); Mean Corpuscular HGB Conc 33.1 GM/DL (32-36); Mean Corpuscular Hemoglobin 28 PG (27-34); Mean Corpuscular Volume 83.6 FL (87-102); Mean Platelet Volume 10.8 FL (9.6-12.0); Monocytes # 0.6 10*3/uL (0.11-0.8); Monocytes % 4.1 % (1.7-12.7); Neutrophils # 13.1 10*3/uL (1.4-7.4); Neutrophils % 89.3 % (38.7-73.9); Platelet Count 337 T/CUMM (130-400); Red Blood Count 4.52 MC/CUMM (3.8-5.5); Red Cell Distribution Width 12.3 % (9.3-17.3); White Blood Count 14.6 T/CUMM (4-12)
[2017-09-08 04:29] LABS: Lymphocytes 1 % (20-55); Segmented Neutrophils 93 % (50-85); Total Cells Counted 100
[2017-09-08 04:30] LABS: Hypochromasia 1+; Microcytosis 1+; Platelet Estimate Normal
[2017-09-08 04:32] LABS: ABG Base Excess 6.1 MMOL/L (-2.5-2.5); ABG HCO3 29.8 MMOL/L (20-26); ABG Oxygen Saturation 96.5 % (95-100); ABG PCO2 39.6 MM HG (35-48); ABG PH 7.494 (7.35-7.45); ABG PO2 86.4 MM HG (80-95); Allen Test Positive; Pt O2 Delivery Device Ventilator
[2017-09-08 04:35] LABS: Calcium 8.7 MG/DL (8.5-10.1); Osmolality,Calculated 293.5 MOS/KG (273-304); Potassium 3.6 MMOL/L (3.5-5.1)
[2017-09-08] MEDS: PROPOFOL 1,000 MG/100 ML BOTTLE IV SCH ×2 (05:16→16:09)
[2017-09-08] MEDS: methylPREDNISolone SOD SUC 40 MG/1 ML VIAL IV SCH ×2 (08:24→21:15)
[2017-09-08] MEDS: INSULIN GLARGINE 100 UNIT/ML SUBCUT SCH (08:24)
[2017-09-08] MEDS: POTASSIUM CHLORIDE 20 MEQ TABLET PO SCH (08:25)
[2017-09-08] MEDS: APIXABAN 5 MG TABLET PO SCH ×2 (08:25→21:20)
[2017-09-08] MEDS: glyBURIDE 2.5 MG TABLET PO SCH (08:25)
[2017-09-08] MEDS: ASPIRIN EC 81 MG TABLET PO SCH (08:25)
[2017-09-08] MEDS: CITALOPRAM 20 MG TABLET PO SCH (08:25)
[2017-09-08] MEDS: AZITHROMYCIN INJ 500 MG in SODIUM CHLORIDE 0.9% 250 ML IV SCH (09:13)
[2017-09-08] MEDS: fentaNYL INJ 2,500 MCG in SODIUM CHLORIDE 0.9% 450 ML IV SCH ×2 (11:32→22:45)
[2017-09-09] MEDS: ALBUTEROL 2.5 MG/3 ML NEB RESP TX SCH ×6 (00:05→20:35)
[2017-09-09] MEDS: INSULIN REGULAR 100 UNIT/ML SUBCUT SCH ×4 (00:28→18:00)
[2017-09-09] MEDS: fentaNYL INJ 1,250 MCG in SODIUM CHLORIDE 0.9% 225 ML IV SCH (01:59)
[2017-09-09] MEDS: ACYCLOVIR INJ 500 MG in SODIUM CHLORIDE 0.9% 100 ML IV SCH ×3 (03:07→18:01)
[2017-09-09 04:35] LABS: ABG Base Excess 5.6 MMOL/L (-2.5-2.5); ABG Oxygen Saturation 97.1 % (95-100); ABG PCO2 43.1 MM HG (35-48); ABG PH 7.461 (7.35-7.45); ABG PO2 97.2 MM HG (80-95); ABG TCO2 31.4 MMOL/L (23-27)
[2017-09-09 04:36] LABS: Allen Test Positive; Pt O2 Delivery Device Ventilator
[2017-09-09] MEDS: PROPOFOL 1,000 MG/100 ML BOTTLE IV SCH ×3 (06:05→18:34)
[2017-09-09] MEDS: PIPERACILLIN/TAZOBACTAM 3,375 MG in SODIUM CHLORIDE 0.9% 100 ML IV SCH ×3 (06:41→21:35)
[2017-09-09] MEDS ORDERED: FUROSEMIDE 40 MG/4 ML VIAL IV ONE (08:37)
[2017-09-09] MEDS: INSULIN GLARGINE 100 UNIT/ML SUBCUT SCH (08:53)
[2017-09-09] MEDS: POTASSIUM CHLORIDE 20 MEQ TABLET PO SCH (08:53)
[2017-09-09] MEDS: ASPIRIN EC 81 MG TABLET PO SCH (08:53)
[2017-09-09] MEDS: glyBURIDE 2.5 MG TABLET PO SCH (08:53)
[2017-09-09] MEDS: APIXABAN 5 MG TABLET PO SCH ×2 (08:53→21:34)
[2017-09-09] MEDS: CITALOPRAM 20 MG TABLET PO SCH (08:54)
[2017-09-09] MEDS: methylPREDNISolone SOD SUC 40 MG/1 ML VIAL IV SCH ×2 (09:01→21:32)
[2017-09-09] MEDS: AZITHROMYCIN INJ 500 MG in SODIUM CHLORIDE 0.9% 250 ML IV SCH (09:02)
[2017-09-09] MEDS ORDERED: POTASSIUM CHLORIDE 20 MEQ/15 ML UDCUP PER TUBE PRN (10:18)
[2017-09-09] MEDS: fentaNYL INJ 2,500 MCG in SODIUM CHLORIDE 0.9% 450 ML IV SCH ×2 (11:05→21:40)
[2017-09-09] MEDS: metOLazone 2.5 MG TABLET PO SCH (13:30)
[2017-09-09] MEDS: LORazepam 2 MG/1 ML VIAL IV PRN ×2 (15:25→18:32)
[2017-09-09 18:38] LABS: Calcium 8.6 MG/DL (8.5-10.1); Osmolality,Calculated 286.8 MOS/KG (273-304); Potassium 4.2 MMOL/L (3.5-5.1)
[2017-09-10] MEDS: INSULIN REGULAR 100 UNIT/ML SUBCUT SCH ×4 (00:30→18:44)
[2017-09-10] MEDS: ALBUTEROL 2.5 MG/3 ML NEB RESP TX SCH ×6 (01:03→19:50)
[2017-09-10] MEDS: PROPOFOL 1,000 MG/100 ML BOTTLE IV SCH ×2 (03:31→17:30)
[2017-09-10] MEDS: ACYCLOVIR INJ 500 MG in SODIUM CHLORIDE 0.9% 100 ML IV SCH ×3 (03:32→18:41)
[2017-09-10 04:06] LABS: ABG Base Excess 7.2 MMOL/L (-2.5-2.5); ABG HCO3 32.2 MMOL/L (20-26); ABG Oxygen Saturation 98.1 % (95-100); ABG PCO2 47.1 MM HG (35-48); ABG PH 7.453 (7.35-7.45); ABG PO2 122.1 MM HG (80-95); ABG TCO2 33.7 MMOL/L (23-27); Allen Test Positive; Pt O2 Delivery Device Ventilator
[2017-09-10] MEDS: LORazepam 2 MG/1 ML VIAL IV PRN (04:10)
[2017-09-10 04:44] LABS: Basophils % 0.2 % (0.0-0.8); Hematocrit 38.4 VOL% (42.0-52.0); Hemoglobin 13.4 GM/DL (14.0-18.0); Immature Granulocytes % 2.8 %; Lymphocytes # 1.1 10*3/uL (1.4-4.0); Lymphocytes % 7.4 % (21.2-54.2); Mean Corpuscular HGB Conc 34.9 GM/DL (32-36); Mean Corpuscular Hemoglobin 29 PG (27-34); Mean Corpuscular Volume 81.5 FL (87-102); Mean Platelet Volume 10.5 FL (9.6-12.0); Monocytes # 0.6 10*3/uL (0.11-0.8); Monocytes % 4.3 % (1.7-12.7); Neutrophils # 12.3 10*3/uL (1.4-7.4); Neutrophils % 85.3 % (38.7-73.9); Platelet Count 424 T/CUMM (130-400); Red Blood Count 4.71 MC/CUMM (3.8-5.5); Red Cell Distribution Width 12.2 % (9.3-17.3); White Blood Count 14.4 T/CUMM (4-12)
[2017-09-10 05:10] LABS: Calcium 9.1 MG/DL (8.5-10.1); Osmolality,Calculated 280.4 MOS/KG (273-304); Potassium 4.5 MMOL/L (3.5-5.1)
[2017-09-10 05:13] LABS: Albumin 3.1 G/DL (3.4-5.0); Bilirubin,Direct 0.39 MG/DL (0.0-0.20); Bilirubin,Indirect 0.5 MG/DL (0.0-1.0); Bilirubin,Total 0.9 MG/DL (0.2-1.0); Total Protein 6.1 G/DL (6.4-8.3)
[2017-09-10] MEDS: PIPERACILLIN/TAZOBACTAM 3,375 MG in SODIUM CHLORIDE 0.9% 100 ML IV SCH ×3 (06:39→22:56)
[2017-09-10] MEDS: ASPIRIN EC 81 MG TABLET PO SCH (09:22)
[2017-09-10] MEDS: POTASSIUM CHLORIDE 20 MEQ TABLET PO SCH (09:22)
[2017-09-10] MEDS: glyBURIDE 2.5 MG TABLET PO SCH (09:23)
[2017-09-10] MEDS: metOLazone 2.5 MG TABLET PO SCH (09:23)
[2017-09-10] MEDS: CITALOPRAM 20 MG TABLET PO SCH (09:23)
[2017-09-10] MEDS: INSULIN GLARGINE 100 UNIT/ML SUBCUT SCH (09:28)
[2017-09-10] MEDS: APIXABAN 5 MG TABLET PO SCH ×2 (09:28→20:37)
[2017-09-10] MEDS: AZITHROMYCIN INJ 500 MG in SODIUM CHLORIDE 0.9% 250 ML IV SCH (09:49)
[2017-09-10] MEDS: fentaNYL INJ 2,500 MCG in SODIUM CHLORIDE 0.9% 450 ML IV SCH ×2 (11:05→20:53)
[2017-09-10] MEDS: methylPREDNISolone SOD SUC 40 MG/1 ML VIAL IV SCH ×2 (11:09→20:37)
[2017-09-11] MEDS: ALBUTEROL 2.5 MG/3 ML NEB RESP TX SCH ×6 (00:10→19:59)
[2017-09-11] MEDS: INSULIN REGULAR 100 UNIT/ML SUBCUT SCH ×4 (01:03→18:20)
[2017-09-11] MEDS: PROPOFOL 1,000 MG/100 ML BOTTLE IV SCH ×5 (03:23→21:45)
[2017-09-11 03:36] LABS: ABG Base Excess 7.8 MMOL/L (-2.5-2.5); ABG HCO3 31.8 MMOL/L (20-26); ABG Oxygen Saturation 98.3 % (95-100); ABG PCO2 42.2 MM HG (35-48); ABG PH 7.495 (7.35-7.45); ABG PO2 124.5 MM HG (80-95); ABG TCO2 33.1 MMOL/L (23-27); Allen Test Positive; Pt O2 Delivery Device Ventilator
[2017-09-11] MEDS: fentaNYL INJ 2,500 MCG in SODIUM CHLORIDE 0.9% 450 ML IV SCH ×3 (04:53→21:11)
[2017-09-11] MEDS: ACYCLOVIR INJ 500 MG in SODIUM CHLORIDE 0.9% 100 ML IV SCH ×3 (05:16→18:20)
[2017-09-11 06:10] LABS: Prealbumin 31.3 MG/DL (20-40)
[2017-09-11] MEDS: PIPERACILLIN/TAZOBACTAM 3,375 MG in SODIUM CHLORIDE 0.9% 100 ML IV SCH ×2 (06:40→21:43)
[2017-09-11] MEDS ORDERED: PROPOFOL 200 MG/20 ML VIAL IV ONE (10:37)
[2017-09-11] MEDS ORDERED: fentaNYL 100 MCG/2 ML VIAL ONE (10:37)
[2017-09-11] MEDS ORDERED: MIDAZOLAM 10 MG/2 ML VIAL ONE (10:37)
[2017-09-11] MEDS ORDERED: SEVOFLURANE 1 UNIT/15 MINUTE INH ONE (10:37)
[2017-09-11] MEDS ORDERED: VECURONIUM 10 MG VIAL IV ONE (10:37)
[2017-09-11] MEDS ORDERED: GLYCOPYRROLATE 0.4 MG/2 ML VIAL ONE (10:38)
[2017-09-11] MEDS: glyBURIDE 2.5 MG TABLET PO SCH (11:15)
[2017-09-11] MEDS: methylPREDNISolone SOD SUC 40 MG/1 ML VIAL IV SCH ×2 (11:15→20:26)
[2017-09-11] MEDS: POTASSIUM CHLORIDE 20 MEQ TABLET PO SCH (11:16)
[2017-09-11] MEDS: ASPIRIN EC 81 MG TABLET PO SCH (11:16)
[2017-09-11] MEDS: APIXABAN 5 MG TABLET PO SCH ×2 (11:16→20:27)
[2017-09-11] MEDS: metOLazone 2.5 MG TABLET PO SCH (11:16)
[2017-09-11] MEDS: CITALOPRAM 20 MG TABLET PO SCH (11:16)
[2017-09-11] MEDS: AZITHROMYCIN INJ 500 MG in SODIUM CHLORIDE 0.9% 250 ML IV SCH (11:17)
[2017-09-11] MEDS: INSULIN GLARGINE 100 UNIT/ML SUBCUT SCH (11:36)
[2017-09-12] MEDS: ALBUTEROL 2.5 MG/3 ML NEB RESP TX SCH ×7 (00:17→23:28)
[2017-09-12] MEDS: INSULIN REGULAR 100 UNIT/ML SUBCUT SCH ×4 (00:52→17:19)
[2017-09-12] MEDS: ACYCLOVIR INJ 500 MG in SODIUM CHLORIDE 0.9% 100 ML IV SCH ×3 (02:14→18:11)
[2017-09-12] MEDS: PROPOFOL 1,000 MG/100 ML BOTTLE IV SCH ×4 (02:14→20:20)
[2017-09-12] MEDS: fentaNYL INJ 2,500 MCG in SODIUM CHLORIDE 0.9% 450 ML IV SCH ×5 (02:53→23:10)
[2017-09-12 03:47] LABS: ABG Base Excess 5.7 MMOL/L (-2.5-2.5); ABG HCO3 29.6 MMOL/L (20-26); ABG Oxygen Saturation 98.1 % (95-100); ABG PCO2 45.3 MM HG (35-48); ABG PH 7.439 (7.35-7.45); ABG TCO2 27.2 MMOL/L (23-27); Allen Test Positive; Pt O2 Delivery Device Ventilator
[2017-09-12 06:11] LABS: Basophils % 0.1 % (0.0-0.8); Hematocrit 34.1 VOL% (42.0-52.0); Hemoglobin 11.6 GM/DL (14.0-18.0); Immature Granulocytes Absolute 0.14 #; Lymphocytes # 0.6 10*3/uL (1.4-4.0); Lymphocytes % 4.1 % (21.2-54.2); Mean Corpuscular Hemoglobin 28 PG (27-34); Mean Corpuscular Volume 83.2 FL (87-102); Monocytes # 0.6 10*3/uL (0.11-0.8); Monocytes % 4.3 % (1.7-12.7); Neutrophils # 12.5 10*3/uL (1.4-7.4); Neutrophils % 90.5 % (38.7-73.9); Platelet Count 334 T/CUMM (130-400); Red Cell Distribution Width 12.5 % (9.3-17.3); White Blood Count 13.8 T/CUMM (4-12)
[2017-09-12 06:28] LABS: Giant Platelets Few; Hypochromasia 1+; Lymphocytes 3 % (20-55); Microcytosis Slight; Platelet Estimate Adequate; Segmented Neutrophils 93 % (50-85); Total Cells Counted 100
[2017-09-12] MEDS: PIPERACILLIN/TAZOBACTAM 3,375 MG in SODIUM CHLORIDE 0.9% 100 ML IV SCH ×3 (06:29→21:29)
[2017-09-12 06:34] LABS: Calcium 8.2 MG/DL (8.5-10.1); Osmolality,Calculated 285.5 MOS/KG (273-304); Potassium 4.6 MMOL/L (3.5-5.1)
[2017-09-12] MEDS: CITALOPRAM 20 MG TABLET PO SCH (08:14)
[2017-09-12] MEDS: metOLazone 2.5 MG TABLET PO SCH (08:15)
[2017-09-12] MEDS: ASPIRIN EC 81 MG TABLET PO SCH (08:15)
[2017-09-12] MEDS: APIXABAN 5 MG TABLET PO SCH ×2 (08:15→21:28)
[2017-09-12] MEDS: methylPREDNISolone SOD SUC 40 MG/1 ML VIAL IV SCH ×2 (08:15→21:29)
[2017-09-12] MEDS: INSULIN GLARGINE 100 UNIT/ML SUBCUT SCH (08:15)
[2017-09-12] MEDS: POTASSIUM CHLORIDE 20 MEQ TABLET PO SCH (08:15)
[2017-09-12] MEDS: glyBURIDE 2.5 MG TABLET PO SCH (08:15)
[2017-09-12] MEDS: AZITHROMYCIN INJ 500 MG in SODIUM CHLORIDE 0.9% 250 ML IV SCH (08:38)
[2017-09-12] MEDS: POLYETHYLENE GLYCOL POWDER 17 GM PACK PO SCH (21:28)
[2017-09-13] MEDS: INSULIN REGULAR 100 UNIT/ML SUBCUT SCH ×4 (00:46→18:29)
[2017-09-13] MEDS: PROPOFOL 1,000 MG/100 ML BOTTLE IV SCH ×4 (01:10→23:28)
[2017-09-13] MEDS: ACYCLOVIR INJ 500 MG in SODIUM CHLORIDE 0.9% 100 ML IV SCH ×3 (03:30→18:29)
[2017-09-13] MEDS: ALBUTEROL 2.5 MG/3 ML NEB RESP TX SCH ×6 (03:34→23:22)
[2017-09-13 04:18] LABS: Allen Test Positive; Pt O2 Delivery Device Ventilator
[2017-09-13 04:23] LABS: ABG Base Excess 5.9 MMOL/L (-2.5-2.5); ABG HCO3 29.7 MMOL/L (20-26); ABG Oxygen Saturation 98.8 % (95-100); ABG PH 7.488 (7.35-7.45); ABG PO2 157.4 MM HG (80-95); ABG TCO2 30.9 MMOL/L (23-27)
[2017-09-13] MEDS: fentaNYL INJ 2,500 MCG in SODIUM CHLORIDE 0.9% 450 ML IV SCH ×4 (04:29→21:33)
[2017-09-13] MEDS: PIPERACILLIN/TAZOBACTAM 3,375 MG in SODIUM CHLORIDE 0.9% 100 ML IV SCH ×3 (05:35→21:00)
[2017-09-13] MEDS: methylPREDNISolone SOD SUC 40 MG/1 ML VIAL IV SCH ×2 (08:01→21:02)
[2017-09-13] MEDS: metOLazone 2.5 MG TABLET PO SCH (08:01)
[2017-09-13] MEDS: POTASSIUM CHLORIDE 20 MEQ TABLET PO SCH (08:01)
[2017-09-13] MEDS: ASPIRIN EC 81 MG TABLET PO SCH (08:01)
[2017-09-13] MEDS: CITALOPRAM 20 MG TABLET PO SCH (08:01)
[2017-09-13] MEDS: INSULIN GLARGINE 100 UNIT/ML SUBCUT SCH (08:01)
[2017-09-13] MEDS: glyBURIDE 2.5 MG TABLET PO SCH (08:01)
[2017-09-13] MEDS: APIXABAN 5 MG TABLET PO SCH ×2 (08:01→21:01)
[2017-09-13] MEDS: POLYETHYLENE GLYCOL POWDER 17 GM PACK PO SCH ×2 (08:02→21:01)
[2017-09-13] MEDS: AZITHROMYCIN INJ 500 MG in SODIUM CHLORIDE 0.9% 250 ML IV SCH (09:11)
[2017-09-14] MEDS: INSULIN REGULAR 100 UNIT/ML SUBCUT SCH ×4 (00:14→18:08)
[2017-09-14] MEDS: fentaNYL INJ 2,500 MCG in SODIUM CHLORIDE 0.9% 450 ML IV SCH ×5 (02:28→22:25)
[2017-09-14] MEDS: ACYCLOVIR INJ 500 MG in SODIUM CHLORIDE 0.9% 100 ML IV SCH ×3 (02:30→18:08)
[2017-09-14] MEDS: PROPOFOL 1,000 MG/100 ML BOTTLE IV SCH ×2 (03:24→07:16)
[2017-09-14] MEDS: ALBUTEROL 2.5 MG/3 ML NEB RESP TX SCH ×6 (03:38→23:41)
[2017-09-14 03:59] LABS: ABG Base Excess 8.1 MMOL/L (-2.5-2.5); ABG HCO3 31.4 MMOL/L (20-26); ABG Oxygen Saturation 95.5 % (95-100); ABG PCO2 38.7 MM HG (35-48); ABG PH 7.527 (7.35-7.45); ABG PO2 74.7 MM HG (80-95); ABG TCO2 32.6 MMOL/L (23-27); Allen Test Positive; Pt O2 Delivery Device Ventilator
[2017-09-14] MEDS: PIPERACILLIN/TAZOBACTAM 3,375 MG in SODIUM CHLORIDE 0.9% 100 ML IV SCH ×3 (05:34→21:42)
[2017-09-14] MEDS: AZITHROMYCIN INJ 500 MG in SODIUM CHLORIDE 0.9% 250 ML IV SCH (08:53)
[2017-09-14] MEDS: POLYETHYLENE GLYCOL POWDER 17 GM PACK PO SCH ×2 (08:53→21:42)
[2017-09-14] MEDS: INSULIN GLARGINE 100 UNIT/ML SUBCUT SCH (08:53)
[2017-09-14] MEDS: methylPREDNISolone SOD SUC 40 MG/1 ML VIAL IV SCH ×2 (08:53→21:46)
[2017-09-14] MEDS: APIXABAN 5 MG TABLET PO SCH ×2 (08:54→21:41)
[2017-09-14] MEDS: CITALOPRAM 20 MG TABLET PO SCH (08:54)
[2017-09-14] MEDS: glyBURIDE 2.5 MG TABLET PO SCH (08:54)
[2017-09-14] MEDS: ASPIRIN EC 81 MG TABLET PO SCH (08:54)
[2017-09-14] MEDS: metOLazone 2.5 MG TABLET PO SCH (08:54)
[2017-09-14] MEDS: POTASSIUM CHLORIDE 20 MEQ TABLET PO SCH (08:54)
[2017-09-14] MEDS: ONDANSETRON 4 MG/2 ML VIAL IV PRN ×2 (14:51→20:30)
[2017-09-14] MEDS: LACTULOSE 20 GM/30 ML UDCUP PO SCH (21:41)
[2017-09-15] MEDS: INSULIN REGULAR 100 UNIT/ML SUBCUT SCH ×4 (00:19→18:34)
[2017-09-15] MEDS: PROPOFOL 1,000 MG/100 ML BOTTLE IV SCH ×2 (00:35→04:38)
[2017-09-15] MEDS: fentaNYL INJ 2,500 MCG in SODIUM CHLORIDE 0.9% 450 ML IV SCH (03:11)
[2017-09-15] MEDS: ACYCLOVIR INJ 500 MG in SODIUM CHLORIDE 0.9% 100 ML IV SCH ×3 (03:21→18:31)
[2017-09-15] MEDS: ALBUTEROL 2.5 MG/3 ML NEB RESP TX SCH ×5 (03:45→19:32)
[2017-09-15 04:21] LABS: ABG Base Excess 0.4 MMOL/L (-2.5-2.5); ABG HCO3 24.7 MMOL/L (20-26); ABG Oxygen Saturation 96.4 % (95-100); ABG PH 7.358 (7.35-7.45); ABG TCO2 23.3 MMOL/L (23-27); Allen Test Positive; Pt O2 Delivery Device Ventilator
[2017-09-15 04:32] LABS: Basophils % 0.2 % (0.0-0.8); Hematocrit 35.5 VOL% (42.0-52.0); Hemoglobin 12.4 GM/DL (14.0-18.0); Immature Granulocytes % 2.9 %; Immature Granulocytes Absolute 0.45 #; Lymphocytes # 1.3 10*3/uL (1.4-4.0); Lymphocytes % 8.4 % (21.2-54.2); Mean Corpuscular HGB Conc 34.9 GM/DL (32-36); Mean Corpuscular Hemoglobin 29 PG (27-34); Mean Corpuscular Volume 82.8 FL (87-102); Mean Platelet Volume 10.7 FL (9.6-12.0); Monocytes # 0.5 10*3/uL (0.11-0.8); Monocytes % 3.2 % (1.7-12.7); Neutrophils # 13.3 10*3/uL (1.4-7.4); Neutrophils % 85.3 % (38.7-73.9); Platelet Count 385 T/CUMM (130-400); Red Blood Count 4.29 MC/CUMM (3.8-5.5); Red Cell Distribution Width 12.6 % (9.3-17.3); White Blood Count 15.6 T/CUMM (4-12)
[2017-09-15 05:05] LABS: Calcium 8.9 MG/DL (8.5-10.1); Potassium 4.4 MMOL/L (3.5-5.1)
[2017-09-15] MEDS: PIPERACILLIN/TAZOBACTAM 3,375 MG in SODIUM CHLORIDE 0.9% 100 ML IV SCH ×3 (05:53→23:29)
[2017-09-15] MEDS: methylPREDNISolone SOD SUC 40 MG/1 ML VIAL IV SCH ×2 (08:39→21:35)
[2017-09-15] MEDS: APIXABAN 5 MG TABLET PO SCH ×2 (08:42→21:31)
[2017-09-15] MEDS: metOLazone 2.5 MG TABLET PO SCH (08:43)
[2017-09-15] MEDS: CITALOPRAM 20 MG TABLET PO SCH (08:44)
[2017-09-15] MEDS: ASPIRIN EC 81 MG TABLET PO SCH (08:45)
[2017-09-15] MEDS: glyBURIDE 2.5 MG TABLET PO SCH (08:45)
[2017-09-15] MEDS: POTASSIUM CHLORIDE 20 MEQ TABLET PO SCH (08:45)
[2017-09-15] MEDS: INSULIN GLARGINE 100 UNIT/ML SUBCUT SCH (08:46)
[2017-09-15] MEDS: LACTULOSE 20 GM/30 ML UDCUP PO SCH ×3 (08:47→21:31)
[2017-09-15] MEDS: POLYETHYLENE GLYCOL POWDER 17 GM PACK PO SCH ×2 (08:50→21:31)
[2017-09-15] MEDS: AZITHROMYCIN INJ 500 MG in SODIUM CHLORIDE 0.9% 250 ML IV SCH (08:50)
[2017-09-15 11:10] LABS: ABG HCO3 26.2 MMOL/L (20-26); ABG Oxygen Saturation 97.8 % (95-100); ABG PCO2 44.2 MM HG (35-48); ABG PH 7.391 (7.35-7.45); ABG PO2 111.3 MM HG (80-95); ABG TCO2 27.6 MMOL/L (23-27)
[2017-09-15] MEDS: ONDANSETRON 4 MG/2 ML VIAL IV PRN (12:29)
[2017-09-15] MEDS: MORPHINE 2 MG/1 ML SYRINGE IV PRN (14:51)
[2017-09-15 15:28] LABS: ABG Base Excess -0.4 MMOL/L (-2.5-2.5); ABG HCO3 24.1 MMOL/L (20-26); ABG Oxygen Saturation 98.6 % (95-100); ABG PCO2 40.3 MM HG (35-48); ABG PH 7.391 (7.35-7.45); ABG TCO2 21.7 MMOL/L (23-27)
[2017-09-15] MEDS ORDERED: ALUM/MAG/SIMETH/LIDO VISC 1:1 30 ML BOTTLE PO ONE (20:04)
[2017-09-15] MEDS: MECLIZINE 25 MG TABLET PO PRN (20:23)
[2017-09-15] MEDS: PHENOL 1.4% THROAT SPRAY 177 ML BOTTLE PO PRN (21:00)
[2017-09-16] MEDS: ALBUTEROL 2.5 MG/3 ML NEB RESP TX SCH ×7 (00:05→23:44)
[2017-09-16] MEDS: ACYCLOVIR INJ 500 MG in SODIUM CHLORIDE 0.9% 100 ML IV SCH (03:17)
[2017-09-16] MEDS: PHENOL 1.4% THROAT SPRAY 177 ML BOTTLE PO PRN (03:17)
[2017-09-16 03:29] LABS: ABG Base Excess 1.5 MMOL/L (-2.5-2.5); ABG HCO3 25.4 MMOL/L (20-26); ABG PCO2 37.5 MM HG (35-48); ABG PH 7.448 (7.35-7.45); ABG PO2 74.9 MM HG (80-95); ABG TCO2 26.5 MMOL/L (23-27); Allen Test Positive
[2017-09-16] MEDS: INSULIN REGULAR 100 UNIT/ML SUBCUT SCH ×2 (06:12)
[2017-09-16] MEDS: PIPERACILLIN/TAZOBACTAM 3,375 MG in SODIUM CHLORIDE 0.9% 100 ML IV SCH ×3 (06:12→23:30)
[2017-09-16] MEDS: glyBURIDE 2.5 MG TABLET PO SCH (08:46)
[2017-09-16] MEDS: LACTULOSE 20 GM/30 ML UDCUP PO SCH (08:46)
[2017-09-16] MEDS: ASPIRIN EC 81 MG TABLET PO SCH (08:46)
[2017-09-16] MEDS: CITALOPRAM 20 MG TABLET PO SCH (08:46)
[2017-09-16] MEDS: metOLazone 2.5 MG TABLET PO SCH (08:46)
[2017-09-16] MEDS: APIXABAN 5 MG TABLET PO SCH ×2 (08:46→21:34)
[2017-09-16] MEDS: POTASSIUM CHLORIDE 20 MEQ TABLET PO SCH (08:46)
[2017-09-16] MEDS: INSULIN GLARGINE 100 UNIT/ML SUBCUT SCH (08:47)
[2017-09-16] MEDS: POLYETHYLENE GLYCOL POWDER 17 GM PACK PO SCH (08:47)
[2017-09-16] MEDS: methylPREDNISolone SOD SUC 40 MG/1 ML VIAL IV SCH (08:47)
[2017-09-16] MEDS: AZITHROMYCIN INJ 500 MG in SODIUM CHLORIDE 0.9% 250 ML IV SCH (08:57)
[2017-09-16] MEDS: MECLIZINE 25 MG TABLET PO PRN (09:37)
[2017-09-16] MEDS: MORPHINE 2 MG/1 ML SYRINGE IV PRN (09:38)
[2017-09-16] MEDS ORDERED: DEXTROSE 50% 25 GM/50 ML VIAL IV PRN (11:03)
[2017-09-16] MEDS ORDERED: GLUCAGON 1 MG VIAL IM PRN (11:03)
[2017-09-16] MEDS: INSULIN LISPRO 100 UNIT/ML SUBCUT SCH ×3 (11:48→21:34)
[2017-09-16] MEDS: MELATONIN 3 MG TABLET PO PRN (21:34)
[2017-09-17] MEDS: ALBUTEROL 2.5 MG/3 ML NEB RESP TX SCH ×6 (03:39→23:56)
[2017-09-17] MEDS: PIPERACILLIN/TAZOBACTAM 3,375 MG in SODIUM CHLORIDE 0.9% 100 ML IV SCH ×3 (07:00→23:31)
[2017-09-17] MEDS: INSULIN LISPRO 100 UNIT/ML SUBCUT SCH ×4 (08:20→20:24)
[2017-09-17] MEDS: predniSONE 20 MG TABLET PO SCH (09:08)
[2017-09-17] MEDS: CITALOPRAM 20 MG TABLET PO SCH (09:08)
[2017-09-17] MEDS: APIXABAN 5 MG TABLET PO SCH ×2 (09:08→20:22)
[2017-09-17] MEDS: glyBURIDE 2.5 MG TABLET PO SCH (09:08)
[2017-09-17] MEDS: POTASSIUM CHLORIDE 20 MEQ TABLET PO SCH (09:09)
[2017-09-17] MEDS: acetaZOLAMIDE 250 MG TABLET PO SCH (09:09)
[2017-09-17] MEDS: metOLazone 2.5 MG TABLET PO SCH (09:09)
[2017-09-17] MEDS: ASPIRIN EC 81 MG TABLET PO SCH (09:09)
[2017-09-17] MEDS: SIMVASTATIN 20 MG TABLET PO SCH (09:09)
[2017-09-17] MEDS: INSULIN GLARGINE 100 UNIT/ML SUBCUT SCH (09:10)
[2017-09-17] MEDS: AZITHROMYCIN INJ 500 MG in SODIUM CHLORIDE 0.9% 250 ML IV SCH (10:17)
[2017-09-17] MEDS: MELATONIN 3 MG TABLET PO PRN (21:52)
[2017-09-18] MEDS: ALBUTEROL 2.5 MG/3 ML NEB RESP TX SCH ×5 (04:08→19:26)
[2017-09-18 04:55] LABS: Basophils % 0.2 % (0.0-0.8); Eosinophils # 0.1 10*3/uL (0.0-0.87); Eosinophils % 0.4 % (0.00-10.9); Hematocrit 38.6 VOL% (42.0-52.0); Hemoglobin 13.4 GM/DL (14.0-18.0); Immature Granulocytes % 2.6 %; Immature Granulocytes Absolute 0.33 #; Lymphocytes # 1.9 10*3/uL (1.4-4.0); Lymphocytes % 14.9 % (21.2-54.2); Mean Corpuscular HGB Conc 34.7 GM/DL (32-36); Mean Corpuscular Hemoglobin 28 PG (27-34); Mean Corpuscular Volume 81.4 FL (87-102); Mean Platelet Volume 10.6 FL (9.6-12.0); Monocytes # 1.1 10*3/uL (0.11-0.8); Monocytes % 8.5 % (1.7-12.7); Neutrophils # 9.2 10*3/uL (1.4-7.4); Neutrophils % 73.4 % (38.7-73.9); Platelet Count 353 T/CUMM (130-400); Red Blood Count 4.74 MC/CUMM (3.8-5.5); Red Cell Distribution Width 13.2 % (9.3-17.3); White Blood Count 12.6 T/CUMM (4-12)
[2017-09-18 05:11] LABS: Calcium 8.6 MG/DL (8.5-10.1); Osmolality,Calculated 277.8 MOS/KG (273-304); Potassium 2.6 MMOL/L (3.5-5.1)
[2017-09-18] MEDS: INSULIN GLARGINE 100 UNIT/ML SUBCUT SCH (09:05)
[2017-09-18] MEDS: PIPERACILLIN/TAZOBACTAM 3,375 MG in SODIUM CHLORIDE 0.9% 100 ML IV SCH (09:05)
[2017-09-18] MEDS: predniSONE 20 MG TABLET PO SCH (09:06)
[2017-09-18] MEDS: metOLazone 2.5 MG TABLET PO SCH (09:06)
[2017-09-18] MEDS: glyBURIDE 2.5 MG TABLET PO SCH (09:06)
[2017-09-18] MEDS: SIMVASTATIN 20 MG TABLET PO SCH (09:06)
[2017-09-18] MEDS: ASPIRIN EC 81 MG TABLET PO SCH (09:06)
[2017-09-18] MEDS: POTASSIUM CHLORIDE 20 MEQ TABLET PO SCH ×2 (09:06→10:33)
[2017-09-18] MEDS: APIXABAN 5 MG TABLET PO SCH ×2 (09:06→20:28)
[2017-09-18] MEDS: acetaZOLAMIDE 250 MG TABLET PO SCH (09:07)
[2017-09-18] MEDS: CITALOPRAM 20 MG TABLET PO SCH (09:07)
[2017-09-18] MEDS: INSULIN LISPRO 100 UNIT/ML SUBCUT SCH ×4 (09:20→20:28)
[2017-09-18] MEDS: AZITHROMYCIN INJ 500 MG in SODIUM CHLORIDE 0.9% 250 ML IV SCH (10:39)
[2017-09-18] MEDS ORDERED: predniSONE 20 MG TABLET PO SCH (10:58)
[2017-09-18] MEDS: POTASSIUM CHLORIDE 20 MEQ TABLET PO PRN ×4 (12:44→18:54)
[2017-09-18 17:05] LABS: Apearance,Urine CLEAR (Clear); Bilirubin,Urine Negative (Negative); Blood, Urine Negative (Negative); Glucose,Urine (UA) >=500 mg/dL (Negative); Ketones,Urine 5 mg/dL (Negative); Mucus,Urine Occasional /LPF (Occasional); Nitrite,Urine Negative (Negative); Protein,Urine Negative; RBC,Urine 1 /HPF (0-4); Urine Color Yellow (Yellow); Urine Specific Gravity 1.018 (1.001-1.035); WBC,Urine 1 /HPF (0-6)
[2017-09-19] MEDS: ALBUTEROL 2.5 MG/3 ML NEB RESP TX SCH ×4 (00:20→11:00)
[2017-09-19] MEDS: POTASSIUM CHLORIDE 20 MEQ TABLET PO PRN ×3 (04:52→09:25)
[2017-09-19] MEDS: INSULIN LISPRO 100 UNIT/ML SUBCUT SCH ×2 (08:39→12:09)
[2017-09-19] MEDS: CITALOPRAM 20 MG TABLET PO SCH (09:25)
[2017-09-19] MEDS: APIXABAN 5 MG TABLET PO SCH (09:25)
[2017-09-19] MEDS: ASPIRIN EC 81 MG TABLET PO SCH (09:26)
[2017-09-19] MEDS: POTASSIUM CHLORIDE 20 MEQ TABLET PO SCH (09:26)
[2017-09-19] MEDS: metOLazone 2.5 MG TABLET PO SCH (09:26)
[2017-09-19] MEDS: INSULIN GLARGINE 100 UNIT/ML SUBCUT SCH (09:27)
[2017-09-19] MEDS: SIMVASTATIN 20 MG TABLET PO SCH (09:31)
[2017-09-19 12:08] VITALS: BP 142/84
== END 2017-09-19 14:46 | disposition home or self-care (01) | DRG 166 ==
LOC: EDUNIT# → N.ED 08:12 → N.EDINP 09:20 → SUATTDRO 09:20 → N.CC 10:25 → N.4E 09-16 15:58
PROVIDERS: ATTEND Hospitalist